=== PATIENT | male | born 1945 | race Caucasian/White ===

== ENCOUNTER 2022-11-29 19:35 | Emergency (ER) | payer MEDICARE ==
[~2022-11-29] VITALS: Ht 172.7 cm; Wt 97.1 kg
[~2022-11-29 19:35] MED LIST: FOLIC ACID1 MG PO; HYDROXYCHLOROQ200 MG PO; LEVOTHYROXINE100 MC1 PO; METHOTREXATE2.5 M1 PO; PRILOSEC20 M1 PO
[2022-11-29] MEDS ORDERED: ATORVASTATIN CA40 M1 PO (19:43)
[2022-11-29] MEDS ORDERED: PANTOPRAZOLE SO40 MG PO (19:44)
[2022-11-29] MEDS ORDERED: METFORMIN XR500 MG PO (19:44)
[2022-11-29] MEDS ORDERED: Lopressor25 MG PO (19:44)
[2022-11-29] MEDS ORDERED: DULOXETINE HCL30 MG PO (19:45)
[2022-11-29] MEDS ORDERED: AMLODIPINE BESYL5 MG PO (19:45)
[2022-11-29 20:35] LABS: BASO % 0.3 % (0.0-1.0); EOS % 0.1 % (1.0-4.0); HEMATOCRIT 37.5 % (42.0-52.0); LYMPH # 0.9 10*3/uL (1.3-4.4); LYMPH % 7.8 % (27.0-41.0); MEAN CELL VOLUME 94.5 fl (80.0-94.0); MEAN CORPUSCULAR HGB 31.5 pg (27.0-31.0); MEAN CORPUSCULAR HGB CONC 33.3 g/dl (33.0-37.0); MEAN PLATELET VOLUME 9.4 fl (9.6-12.3); MONO # 1.1 10*3/uL (0.1-1.0); MONO % 9.9 % (3.0-9.0); NEUT # 8.9 10*3/uL (2.3-7.9); NEUT % 81.3 % (47.0-73.0); PLATELET COUNT AUTOMATED 165 10*3/uL (130-400); RED BLOOD COUNT 3.97 10*6/uL (4.50-5.90); RED CELL DISTRI WIDTH 13.2 % (0-14.5)
[2022-11-29 20:46] LABS: ACT PARTIAL THROMBO TIME 27.6 SECONDS (20.0-32.1); INTERNATIONAL NORM RATIO 1.1 (2.0-3.5)
[2022-11-29 20:56] LABS: POTASSIUM 4.2 mmol/L (3.4-5.1); TOTAL PROTEIN 7.5 gm/dL (6.0-8.0)
== END 2022-11-30 02:13 | disposition home or self-care (01) ==
LOC: ED 19:35
PROVIDERS: Nurse Practitioner
DX: S09.90XA Unspecified injury of head, initial encounter (principal); R11.2 Nausea with vomiting, unspecified; Z79.82 Long term (current) use of aspirin; Z95.1 Presence of aortocoronary bypass graft; Z79.899 Other long term (current) drug therapy; W18.39XA Other fall on same level, initial encounter; Y93.89 Activity, other specified; Y92.512 Supermarket, store or market as the place of occurrence of the external cause; Y99.8 Other external cause status